=== PATIENT | male | born 1985 | race Caucasian/White ===

== ENCOUNTER 2019-11-01 10:50 | Emergency (ER) | payer OTHER ==
[2019-11-01 11:15] LABS: RAPID STREP SCREEN POSITIVE (Negative)
[2019-11-01] MEDS ORDERED: CHERRY SYRUP 10 ML UDC PO ONE (12:05)
[2019-11-01] MEDS ORDERED: DEXAMETHASONE 10 MG/ML VIAL PO STA (12:05)
--- NOTE | 2019-11-01 12:14 | ED Physician Documentation ---
PD HPI HEENT - Stated complaint Stated Complaint: SORE THROAT - Chief complaint Chief Complaint: Heent - History obtained from History obtained from: Patient - History of Present Illness Timing - onset: How many days ago (3) Timing - duration: Days (3) Timing - details: Gradual onset, Still present Location: Throat Improves: Medication Worsens: Swalllowing Associated symptoms: Congestion, Headache. 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 He has significant sore throat and he has muscle aches and pains and joint aches and pains and he was tested for coronavirus he was negative and he has now come to the hospital with a sore throat that is not going away. He has not had a prior history of strep. Review of Systems Constitutional: reports: Myalgias, Fatigue. denies: Fever Eyes: denies: Decreased vision Ears: denies: Ear pain Nose: reports: Congestion Throat: reports: Sore throat Cardiac: denies: Chest pain / pressure, Palpitations Respiratory: denies: Dyspnea, Cough GI: denies: Abdominal Pain, Nausea, Vomiting : denies: Dysuria, Frequency PD PAST MEDICAL HISTORY - Past Medical History Past Medical History: Yes - Past Surgical History Past Surgical History: Yes Ortho: ACL reconstruction - Present Medications Home Medications: Ambulatory Orders Medication Instructions Recorded Confirmed RX: Amoxicillin 875 mg PO BID #20 tablet 11/01/19 - Allergies Allergies/Adverse Reactions: Allergies Allergy/AdvReac Type Severity Reaction Status Date / Time No Known Drug Allergies Allergy Verified 11/01/19 10:58 - Social History Does the pt smoke?: No Smoking Status: Never smoker Does the pt drink ETOH?: Yes Does the pt have substance abuse?: No - Immunizations Immunizations are current?: Yes PD ED PE NORMAL - Vitals Vital signs reviewed: Yes (hypertensive) - General General: Alert and oriented X 3, No acute distress, Well developed/nourished - HEENT HEENT: Atraumatic, PERRL, EOMI, Ears normal, Other (The pharynx is generally erythematous with swelling and exudate especially from the posterior nasopharynx on the left side there is a fluid sheet of phlem draining. 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, No motor deficit, No sensory deficit, Normal speech Eye Opening: Spontaneous Motor: Obeys Commands Verbal: Oriented GCS Score: 15 - Psych Psych: Normal mood, Normal affect Results - Vitals Vitals: Vital Signs - 24 hr 11/01/19 10:53 Temperature 36.6 C Heart Rate 87 Respiratory 18 Rate Blood Pressure 137/75 H O2 Saturation 98 Oxygen O2 Source Room air - Labs Labs: Laboratory Tests 11/01/19 11:00 Group A Strep Rapid POSITIVE H PD MEDICAL DECISION MAKING - ED course Complexity details: reviewed results, considered differential, d/w patient ED course: 33-year-old healthy male with strep pharyngitis has a lot of posterior nasal drainage. He is administered dexamethasone 10 mg orally and we will place him on some amoxicillin. Departure - Departure Disposition: Home, Self Care Clinical Impression: Strep pharyngitis Condition: Stable Instructions: ED Strep Pharyngitis Conf Follow-Up: FABRICE ROMERO [Primary Care Provider] - Prescriptions: RX: Amoxicillin 875 mg PO BID #20 tablet Forms: Activity restrictions
[2019-11-01 12:36] VITALS: BP 132/72
== END 2019-11-01 12:35 | disposition home or self-care (01) ==
LOC: ED 10:50
DX: J02.0 Streptococcal pharyngitis (principal)
CPT/HCPCS: 87430; 99283; 99284; A9270

== ENCOUNTER 2021-03-08 08:00 | Outpatient (CLI) | payer OTHER | END 2021-03-08 23:59 | disposition home or self-care (01) | LOC: LAB.N 08:00 | PROVIDERS: ATTEND Nurse Practitioner | DX: U07.1 COVID-19 (principal) ==